=== PATIENT | male | born 1975 | race Caucasian/White ===

== ENCOUNTER 2024-09-03 08:56 | Emergency (ER) | payer OTHER, SELFPAY ==
[2024-09-03 09:10] VITALS: BP 150/95; PULSE 81; RESP 16; TEMP 35.8; O2SAT 99
--- NOTE | 2024-09-03 09:31 | ED_ITS ---
HPI - URI/Sore Throat General Chief Complaint: Upper Respiratory Infection Stated Complaint: sore throat Time Seen by Provider: 09/03/24 09:43 Source: patient, RN notes reviewed and old records reviewed Mode of arrival: ambulatory Limitations: no limitations History of Present Illness HPI Narrative: Patient presents with 3 day history of sore throat. He reports no other symptoms. He has not been taking anything for his symptoms. No drooling or stridor noted, he is able to manage own secretions. Reports that he is eating and drinking as normal. No obvious distress Related Data Home Medications ?Medication ?Instructions ?Recorded ?Confirmed ?Last Taken ?Type amlodipine 5 mg tablet 5 mg PO DAILY 09/03/24 09/03/24 Unknown History aripiprazole 30 mg tablet 30 mg PO DAILY 09/03/24 09/03/24 Unknown History bupropion HCl 150 mg 24 hr tablet, 150 mg PO DAILY 09/03/24 09/03/24 Unknown History extended release lisinopril 40 mg tablet 40 mg PO DAILY 09/03/24 09/03/24 Unknown History pravastatin 20 mg tablet 20 mg PO DAILY 09/03/24 09/03/24 Unknown History sertraline 100 mg tablet 100 mg PO Q24H 09/03/24 09/03/24 Unknown History Allergies Allergy/AdvReac Type Severity Reaction Status Date / Time No Known Allergies Allergy Verified 09/03/24 09:04 Review of Systems Review of Systems: All systems reviewed & are unremarkable except as noted in HPI and below Constitutional: Constitutional: Reports no additional constitutional complaints ENT: Reports system reviewed and no additional complaints, except as documented and Reports sore throat Cardiovascular: Cardiovascular: Reports no additional cardiovascular complaints Respiratory: Respiratory: Reports no additional respiratory complaints Gastrointestinal: Gastrointestinal: Reports no additional gastrointestinal c omplaints PMFSH Comments At the time of my signature, I reviewed and agree with the nursing past medical, surgical, social, and family history. There is no relevant family history pertinent to the patient complaint. Exam Const: General: cooperative, no acute distress, alert and awake Orientation/consciousness: oriented to person, oriented to place and oriented to time HENMT: Head: normal to inspection Ears: TM's normal bilaterally Mouth: Yes moist mucous membranes Throat: posterior oropharynx abnormal erythema Resp: Effort & Inspection: normal respiratory effort and able to speak in complete sentences Auscultation: clear to auscultation bilaterally, no crackles, no rales, no rhonchi and no wheezes Cardio: Palpation: normal PMI Rate: regular rate Rhythm: regular rhythm Heart sounds: S1 normal heart sound present and S2 normal heart sound present Neuro: General: oriented to person, oriented to place and oriented to time Cranial nerves: Yes CN's II-XII intact bilaterally Psych: Appearance: grossly normal Thought process: Normal thought process present Insight: Good insight present (Psych) Judgement: Good judgement present (Psych) Course Course Level of Care: Express Care Visit Vital Signs Vital signs: Vital Signs Temperature 96.5 F L 09/03/24 09:10 Pulse Rate 81 09/03/24 09:10 Respiratory Rate 16 09/03/24 09:10 Blood Pressure 150/95 H 09/03/24 09:10 Pulse Oximetry 99 09/03/24 09:10 Oxygen Delivery Room Air 09/03/24 09:10 Temperature 96.5 F L 09/03/24 09:10 Pulse Rate 81 09/03/24 09:10 Respiratory Rate 16 09/03/24 09:10 Blood Pressure 150/95 H 09/03/24 09:10 Pulse Oximetry 99 09/03/24 09:10 Oxygen Delivery Room Air 09/03/24 09:10 Reviewed MDM - URI/Sore Throat MDM Narrative Medical decision making narrative: Negative strep, culture pending. Reassuring physical exam. Supportive care measures discussed. Discharge instructions reviewed with patient, as well as provided in writing per nursing staff. The instructions also include specific and strict return/GO TO THE ER as well as f/u information. All questions have been answered, and the patient deny any further questions with discharge and discharge plan. Some parts of this dictation were generated by voice recognition software and may contain typographical and/or grammatical inaccuracies. Differential Diagnosis Differential diagnosis: Likely upper respiratory infection, otitis media and pharyngitis Medical Records Attestation: I reviewed the patient's medical records. Lab Data Attestation: I reviewed the patient's lab results. Discharge Plan Discharge Clinical Impression: Viral infection Patient Disposition: Home, Self-Care Condition: Stable Instructions: Antibiotic Form, Viral Syndrome (ED) Additional Instructions: Use [id number] medications to treat your symptoms. Follow package instructions. Follow-up with primary care provider. Emergency department for new or worse symptoms Patient Language: Bhut[place] Prescriptions: No Action amlodipine 5 mg tablet 5 mg PO DAILY aripiprazole 30 mg tablet 30 mg PO DAILY bupropion HCl 150 mg tablet extended release 24 hr 150 mg PO DAILY lisinopril 40 mg tablet 40 mg PO DAILY pravastatin 20 mg tablet 20 mg PO DAILY sertraline 100 mg tablet 100 mg PO Q24H Follow-up/Referrals: MYLENE,KARAN DAVIS [Primary Care Provider] - Stand Alone Forms: Work/School Release IP Time of Disposition: 09:46
[2024-09-03 10:52] LABS: EDSTREPNEGPOS1 Negative (Negative)
== END 2024-09-03 09:52 | disposition home or self-care (01) ==
PROVIDERS: Emergency Provider Nurse Practitioner Family; PCP Nurse Practitioner Family
DX: B34.9 Viral infection, unspecified (principal); I10 Essential (primary) hypertension; K21.9 Gastro-esophageal reflux disease without esophagitis; F32.A Depression, unspecified
CPT/HCPCS: 87081; 87880; 99203; G0463